=== PATIENT | female | born 2000 | race Two or more races ===

== ENCOUNTER 2024-12-16 23:03 | Emergency (ER) | payer OTHER ==
[~2024-12-16] VITALS: Ht 162.6 cm; Wt 72.0 kg
[2024-12-16 23:20] VITALS: BP 103/57; PULSE 61; RESP 18; TEMP 98.8; O2SAT 99
[2024-12-17 02:01] LABS: PLATELET COUNT (AUTO) 253 K/uL (150-450); RED BLOOD CELL COUNT(AUTO) 4.20 MIL/uL (4.00-5.20); RED CELL DISTRIBUTION WIDTH 13.3 % (11.5-14.5); WHITE BLOOD COUNT (AUTO) 9.3 K/uL (4.5-11.0)
[2024-12-17 02:09] LABS: CALCIUM, TOTAL 8.5 mg/dL (8.8-10.5); CREATININE 0.89 mg/dL (0.60-1.30); GLOMERULAR FILTR. RATE CALC > 60 mL/min (>60); GLUCOSE,RANDOM 96 mg/dL (70-110); SODIUM SERUM 138 mmol/L (136-145); UREA NITROGEN, BLOOD 26 mg/dL (7-18)
== END 2024-12-17 03:38 | disposition home or self-care (01) ==
LOC: EMS 23:03
DX: K08.89 Other specified disorders of teeth and supporting structures (principal); R20.2 Paresthesia of skin
CPT/HCPCS: 80048; 84703; 85025; 99283